=== PATIENT | male | born 1990 | race Caucasian/White ===

== ENCOUNTER 2017-01-29 17:56 | Emergency (ER) | payer SELFPAY ==
[2017-01-29 19:22] LABS: HEMOGLOBIN 17.3 gm/dl (14.0-17.5); RED BLOOD COUNT 5.66 M/UL (4.20-5.50); WHITE BLOOD COUNT 10.3 K/UL (4.5-11.0)
[2017-01-29 19:57] LABS: BUN/CREATININE RATIO 8 (0-10)
== END 2017-01-29 20:45 | disposition home or self-care (01) ==
LOC: ER1 17:56
PROVIDERS: Physician Assistant Medical
DX: R42 Dizziness and giddiness (principal); R53.83 Other fatigue; F17.210 Nicotine dependence, cigarettes, uncomplicated; Z88.0 Allergy status to penicillin; Z88.8 Allergy status to other drugs, medicaments and biological substances
CPT/HCPCS: 36415; 80053; 81001; 84484; 85025; 93005; 99284

== ENCOUNTER 2021-05-26 15:33 | Emergency (ER) | payer OTHER ==
[~2021-05-26 15:33] MED LIST: AZITHROMYCIN500 MG PO
== END 2021-05-26 16:52 | disposition left against medical advice (07) ==
LOC: ER1 15:33
DX: Z53.21 Procedure and treatment not carried out due to patient leaving prior to being seen by health care provider (principal)

== ENCOUNTER 2022-05-27 10:17 | Emergency (ER) | payer OTHER ==
[2022-05-27 11:20] LABS: HEMOGLOBIN 15.3 gm/dl (14.0-17.5); RED BLOOD COUNT 5.02 M/UL (4.20-5.50); WHITE BLOOD COUNT 9.9 K/UL (4.5-11.0)
[2022-05-27 11:44] LABS: BUN/CREATININE RATIO 10 (0-10)
[2022-05-27] MEDS ORDERED: PERCOCET 5/325 T1 EA PO (13:32)
[2022-05-27] MEDS ORDERED: FLOMAX 0.4 MG0.4 MG PO (13:39)
== END 2022-05-27 14:05 | disposition home or self-care (01) ==
LOC: ER1 10:17
PROVIDERS: Physician Assistant
DX: N20.1 Calculus of ureter (principal)
CPT/HCPCS: 80053; 81001; 83690; 85025; 96361; 96374; 96375; 99284; J1885; J2405; Q9967